=== PATIENT | male | born 1950 | race Caucasian/White ===

== ENCOUNTER 2023-12-20 16:17 | Outpatient (CLI) | payer MEDICARE, SELFPAY ==
[2023-12-20 08:02] LABS: Abs Immature Grans 0.02 10^3/uL (0.0-0.06); Absolute Basophil Count 0.01 10^3/uL (0.0-0.2); Absolute Eosinophil Count 0.14 10^3/uL (0.0-0.7); Absolute Lymphocyte Count 0.49 10^3/uL (1.2-3.4); Absolute Monocyte Count 0.65 10^3/uL (0.1-0.8); Absolute Neutrophil Count 5.46 10^3/uL (1.2-6.7); Basophils % 0.1 %; Eosinophils % 2.1 %; HCT 35.9 % (40.0-50.0); HGB 11.2 g/dL (13.5-17.5); Immature Grans % 0.3 %; Lymphocytes % 7.2 %; MCH 27.4 pg (27.0-33.0); MCHC 31.2 % (32.0-36.0); MCV 88 fL (80-95); MPV 8.3 fL (8.0-11.0); Monocytes % 9.6 %; Neutrophils % 80.7 %; Platelet Count 270 10^3/uL (130-400); RBC 4.09 10^6/uL (4.36-5.78); RDW 14.8 % (11.8-14.1); RDW-SD 47.8 fL; WBC 6.77 10^3/uL (4.4-10.8)
[2023-12-20 08:34] LABS: ALT 33 U/L (16-63); AST 23 U/L (15-37); Alkaline Phosphatase 131 U/L (46-116); Anion Gap 6.9 mmol/L (3-11); BUN 22 mg/dL (7-18); Bilirubin, Total 0.3 mg/dL (0.2-1.0); CO2 29.1 mmol/L (21.0-32.0); CREATININE 0.9 mg/dL (0.70-1.30); Chloride 103 mmol/L (98-107); Estimated GFR 90.74 (mL/min/1.73m2); FREE T4 0.84 ng/dL (0.76-1.46); Glucose 113 mg/dL (74-106); Potassium 4.3 mmol/L (3.5-5.1); Sodium 139 mmol/L (136-145); TSH 2.35 uIU/Ml (0.36-3.74)
== END 2023-12-20 16:18 | disposition home or self-care (01) ==
LOC: LBO 16:18
PROVIDERS: PCP Internal Medicine Hematology & Oncology; Visit Provider Internal Medicine Hematology & Oncology
DX: Z79.899 Other long term (current) drug therapy (principal); C15.5 Malignant neoplasm of lower third of esophagus
CPT/HCPCS: 36415; 80053; 84439; 84443; 85025